=== PATIENT | male | born 1990 | race Caucasian/White ===

== ENCOUNTER 2023-09-26 15:37 | Emergency (ER) | payer BC ==
[~2023-09-26] VITALS: Ht 180 cm; Wt 142.0 kg
[~2023-09-26 15:37] MED LIST: HYDR-34 PO; HYDR-3720 PO
--- NOTE | 2023-09-26 15:48 | ED Lower Extremity ---
General Chief Complaint: Lower Extremity Stated Complaint: RT FOOT INJ Source: patient Exam Limitations: no limitations History of Present Illness Date Seen by Provider: Sep 26, 2023 Time Seen by Provider: 15:43 Initial Comments 32-year-old male presents for right foot pain. He was playing kickball and planted his foot and had immediate pain to the lateral aspect of his right foot just below his little toe. He is able to bear weight with significant pain. No other injury. All other systems reviewed and negative except documented per HPI. Voice recognition software was used to help create this chart Allergies and Home Medications Allergies Coded Allergies: No Known Drug Allergies (Unverified , 12/13/13) Patient Home Medication List Home Medication List Reviewed: Yes Hydrocodone Bit/Acetaminophen (Lortab 7.5 Mg Tablet) 1 Ea Tablet, 1-2 EA PO Q 4 - 6 HR PRN PRN for PAIN Prescribed by: JUSTIN MORALES on 12/16/13 1307 Review of Systems Constitutional: see HPI Past Mayeqwg-Dqdqiy-Gisvnv Hx Patient Social History Tobacco Use?: No Use of E-Cig and/or Vaping dev: No Substance use?: No Alcohol Use?: No Past Medical History Asthma Physical Exam Vital Signs Vital Signs - First Documented 09/26/23 15:50 Temp 36.2 Pulse 99 Resp 20 B/P (MAP) 144/103 (117) Pulse Ox 99 O2 Delivery Room Air Capillary Refill : Height, Weight, BMI Height: 5'11.00" Weight: 280lbs. oz. 127.559463kr; BMI Method:Stated General Appearance: WD/WN, no apparent distress Ankles: bilateral ankle non-tender, bilateral ankle normal inspection, bilateral ankle normal range of motion Feet: left foot non-tender, left foot normal inspection, left foot normal range of motion; right foot other (Tenderness palpation lateral aspect of the right foot beneath the little toe. No obvious deformity. Neurovascular and sensory intact.) Progress/Results/Core Measures Results/Orders My Orders Orders - SHEKHAR CARLSON DO Foot, Right, 3 View (09/26/23 15:47) Vital Signs/I&O 09/26/23 15:50 Temp 36.2 Pulse 99 Resp 20 B/P (MAP) 144/103 (117) Pulse Ox 99 O2 Delivery Room Air Departure Impression Primary Impression: Nguyen fracture Qualified Codes: S99.191A - Other physeal fracture of right metatarsal, initial encounter for closed fracture Disposition: 01 HOME, SELF-CARE Condition: Stable Departure-Patient Inst. Referrals: NO,LOCAL PHYSICIAN (PCP) Primary Care Physician ELA HOGAN MD Patient Instructions: Foot Fracture ED Add. Discharge Instructions: You should be nonweightbearing on your foot. Follow-up with orthopedic surgery by calling to schedule an appointment, contact information is provided in your discharge instructions. Use ibuprofen and Tylenol as needed for pain. Elevate the extremity when not in use and ice it. Return to the emergency department for any severe concerns. All discharge instructions reviewed with patient and/or family. Voiced understan reynaldo. SHEKHAR CARLSON DO Sep 26, 2023 15:48
[2023-09-26 16:13] VITALS: BP 144/103
--- NOTE | 2023-09-26 16:21 | Diagnostic Imaging Report ---
INDICATION: Foot injury, with pain laterally. FINDINGS: Exam confirms the presence of an obliquely oriented fracture through the proximal shaft of the fifth metatarsal. Tarsometatarsal relationships appeared unremarkable. The remaining hindfoot, midfoot, and forefoot appeared intact. IMPRESSION: Obliquely oriented extra-articular fracture of the proximal shaft, fifth metatarsal. Dictated by: Dictated on workstation # [id number]
== END 2023-09-26 16:13 | disposition home or self-care (01) ==
LOC: EDUNIT# 15:37 → ER 15:40
DX: S92.351A Displaced fracture of fifth metatarsal bone, right foot, initial encounter for closed fracture (principal); X58.XXXA Exposure to other specified factors, initial encounter; Y93.6A Activity, physical games generally associated with school recess, summer camp and children; Y92.39 Other specified sports and athletic area as the place of occurrence of the external cause
CPT/HCPCS: 73630; 99282; L2114